=== PATIENT | male | born 1950 | race Caucasian/White ===

== ENCOUNTER 2021-10-24 09:37 | Outpatient (CLI) | payer MEDICARE | END 2021-10-24 23:59 | disposition home or self-care (01) | LOC: LAB 09:37 | PROVIDERS: ATTEND Surgery | DX: Z01.812 Encounter for preprocedural laboratory examination (principal); Z20.822 Contact with and (suspected) exposure to COVID-19 ==

== ENCOUNTER 2021-10-25 07:37 | Day surgery (SDC) | payer MEDICARE ==
[2021-10-25] MEDS ORDERED: PROPOFOL 200 MG/20 ML BOTTLE IV ONE (07:38)
[2021-10-25] MEDS ORDERED: LIDOCAINE-MPF 2% 5 ML VIAL IJ ONE (07:38)
[2021-10-25 08:11] LABS: *BILIRUBIN,URIN NEGATIVE (NEGATIVE); *BLOOD, URINE NEGATIVE (NEGATIVE); *CLARITY,URINE CLEAR (CLEAR); *COLOR,URINE YELLOW (YELLOW); *KETONES,URINE NEGATIVE (NEGATIVE); *UROBILINOGEN,URINE 0.2 E.U./dl (NORMAL); LEUKOCYTE ESTERASE ,URINE 1+ (NEGATIVE); NITRITE, URINE NEGATIVE (NEGATIVE); UGLUCOSE NEGATIVE (NEGATIVE)
[2021-10-25 08:13] LABS: HEMATOCRIT 37.8 % (36.7-47.1); MEAN CORPUSCULAR HEMOGLOBIN 29.8 uug (23.8-33.4); MEAN CORPUSCULAR VOLUME 88.7 fL (73.0-96.2); PLATELET COUNT (AUTO) 175 K/uL (152-348)
[2021-10-25 08:18] LABS: CARBON DIOXIDE 28 mmol/L (21-32); CHLORIDE 104 mmol/L (98-107); CREATININE 1.4 mg/dL (0.6-1.3); GLUCOSE 137 mg/dL (74-106); POTASSIUM 3.9 mmol/L (3.5-5.1); UREA NITROGEN, BLOOD 17 mg/dL (7-18)
[2021-10-25] MEDS ORDERED: FENTANYL CITRATE 100 MCG/2 ML AMPUL ONE (09:02)
[2021-10-25 12:42] LABS: BACTERIA,URINE MODERATE /HPF (NONE SEEN); RBC,URINE 0-3 /HPF (0-3); SQUAMOUS EPITHELIAL CELL,UR FEW /HPF (NONE SEEN)
== END 2021-10-25 11:45 | disposition home or self-care (01) ==
LOC: DS 07:37
PROVIDERS: ATTEND Surgery
DX: R13.10 Dysphagia, unspecified (principal); K44.9 Diaphragmatic hernia without obstruction or gangrene; K29.80 Duodenitis without bleeding; K21.9 Gastro-esophageal reflux disease without esophagitis; K31.89 Other diseases of stomach and duodenum; I10 Essential (primary) hypertension; E11.9 Type 2 diabetes mellitus without complications; I25.10 Atherosclerotic heart disease of native coronary artery without angina pectoris; I25.2 Old myocardial infarction; Z79.899 Other long term (current) drug therapy; Z98.890 Other specified postprocedural states; Z72.89 Other problems related to lifestyle; Z86.73 Personal history of transient ischemic attack (TIA), and cerebral infarction without residual deficits
CPT/HCPCS: 36415; 43239; 43245; 76705; 80048; 81001; 82962; 85025; 85730; 87077; 87086; 88305; 88313; 88342; J3010; J3490; A4217; A4663; C1726; J7030

== ENCOUNTER 2022-02-03 07:21 | Outpatient (CLI) | payer MEDICARE | END 2022-02-03 23:59 | disposition home or self-care (01) | LOC: LAB 07:21 | PROVIDERS: ATTEND Surgery | DX: Z01.812 Encounter for preprocedural laboratory examination (principal); Z20.822 Contact with and (suspected) exposure to COVID-19 ==

== ENCOUNTER 2022-02-04 06:30 | Day surgery (SDC) | payer MEDICARE ==
[~2022-02-04 06:30] MED LIST: BUPIVACAINE/EPI PF 0.5% 10 ML VIAL ONE; LIDOCAINE HCL 1% 20 ML VIAL ONE
[2022-02-04 07:00] LABS: *BILIRUBIN,URIN NEGATIVE (NEGATIVE); *BLOOD, URINE NEGATIVE (NEGATIVE); *CLARITY,URINE CLEAR (CLEAR); *COLOR,URINE YELLOW (YELLOW); *KETONES,URINE NEGATIVE (NEGATIVE); *UROBILINOGEN,URINE 0.2 E.U./dl (NORMAL); LEUKOCYTE ESTERASE ,URINE TRACE (NEGATIVE); NITRITE, URINE NEGATIVE (NEGATIVE); PH,URINE 5.5 (5.0-8.0); UGLUCOSE NEGATIVE (NEGATIVE)
[2022-02-04] MEDS ORDERED: CEFAZOLIN 2 G in IV DEXTROSE 5% 100 ML IV ONE (07:00)
[2022-02-04] MEDS ORDERED: CEFAZOLIN 2 G in IV DEXTROSE 5% 100 ML IV SCH (07:00)
[2022-02-04 07:03] LABS: HEMATOCRIT 38.4 % (36.7-47.1); MEAN CORPUSCULAR HEMOGLOBIN 26.6 uug (23.8-33.4); MEAN CORPUSCULAR VOLUME 80.6 fL (73.0-96.2); PLATELET COUNT (AUTO) 178 K/uL (152-348)
[2022-02-04] MEDS ORDERED: FENTANYL CITRATE 100 MCG/2 ML AMPUL ONE ×3 (07:19→11:35)
[2022-02-04] MEDS ORDERED: ROCURONIUM BROMIDE 50 MG/5 ML VIAL ONE ×2 (07:19→09:25)
[2022-02-04 07:21] LABS: CARBON DIOXIDE 21 mmol/L (21-32); CHLORIDE 109 mmol/L (98-107); CREATININE 1.6 mg/dL (0.6-1.3); GLUCOSE 175 mg/dL (74-106); POTASSIUM 4.4 mmol/L (3.5-5.1); UREA NITROGEN, BLOOD 29 mg/dL (7-18)
[2022-02-04 07:27] LABS: ALANINE AMINOTRANSFERASE 29 U/L (16-63); ALKALINE PHOSPHATASE 110 U/L (50-136); ASPARTATE AMINOTRANSFERASE 20 U/L (15-37); BILIRUBIN,TOTAL 0.3 mg/dL (0.2-1.0); TOTAL PROTEIN, SERUM 7.1 g/dL (6.4-8.2)
[2022-02-04 08:50] LABS: BACTERIA,URINE FEW /HPF (NONE SEEN); RBC,URINE 0-3 /HPF (0-3); SQUAMOUS EPITHELIAL CELL,UR FEW /HPF (NONE SEEN)
[2022-02-04] MEDS ORDERED: ACETAMINOPHEN 325 MG TABLET ONE (11:51)
[2022-02-04] MEDS ORDERED: ONDANSETRON 4 MG/2 ML VIAL ONE (12:05)
[2022-02-04] MEDS ORDERED: DEXAMETHASONE SOD PHOSPHATE 4 MG INJ ONE (12:05)
[2022-02-04] MEDS ORDERED: NEOSTIGMINE METHYLSULFATE 10 MG/10 ML VIAL ONE (12:05)
[2022-02-04] MEDS ORDERED: PROPOFOL 200 MG/20 ML BOTTLE ONE (12:05)
[2022-02-04] MEDS ORDERED: LIDOCAINE-MPF 2% 5 ML VIAL ONE (12:05)
[2022-02-04] MEDS ORDERED: GLYCOPYRROLATE 0.2 MG/ML VIAL ONE (12:05)
[2022-02-04] MEDS ORDERED: MAGNESIUM SULFATE/D5W 100 ML IV ONE (13:00)
[2022-02-04] MEDS ORDERED: MAGNESIUM SULFATE 1 GM/D5W 100 ML IVPB IV ONE (13:00)
[2022-02-04] MEDS ORDERED: GABAPENTIN 300 MG CAPSULE PO ONE (13:00)
[2022-02-04] MEDS ORDERED: IBUPROFEN 800 MG TABLET PO ONE (13:00)
== END 2022-02-04 14:50 | disposition home or self-care (01) ==
LOC: DS 06:30
PROVIDERS: ATTEND Surgery
DX: K44.0 Diaphragmatic hernia with obstruction, without gangrene (principal); I25.10 Atherosclerotic heart disease of native coronary artery without angina pectoris; I10 Essential (primary) hypertension; E11.9 Type 2 diabetes mellitus without complications; Z79.82 Long term (current) use of aspirin; Z79.84 Long term (current) use of oral hypoglycemic drugs; Z79.899 Other long term (current) drug therapy; Z98.890 Other specified postprocedural states; Z79.01 Long term (current) use of anticoagulants
CPT/HCPCS: 36415; 43280; 80053; 81001; 82962; 85025; 85730; 87077; 87086; 93005; J0690; J1100; J2405; J3010 ×3; J3475; J3490 ×6; J7040; J7120; A4663